=== PATIENT | male | born 1970 ===

== ENCOUNTER 2022-01-04 10:01 | Outpatient (CLI) | payer OTHER | END 2022-01-04 10:05 | disposition home or self-care (01) | LOC: SONOGRAMA 10:01 | PROVIDERS: ATTEND Pathology Anatomic Pathology & Clinical Pathology | DX: E04.2 Nontoxic multinodular goiter (principal); E06.3 Autoimmune thyroiditis; E04.1 Nontoxic single thyroid nodule ==